=== PATIENT | female | born 1995 ===

== ENCOUNTER 2017-05-23 09:29 | Emergency (ER) | payer BC, MEDICAID ==
[2017-05-23 09:32] VITALS: BMI 21.7
[2017-05-23 10:34] LABS: RBC URINE 10 /hpf (0-3); URINE BACTERIA RARE (<OCC); URINE BILIRUBIN NEGATIVE (NEGATIVE); URINE BLOOD SMALL (NEGATIVE); URINE COLOR AMBER (YELLOW); URINE GLUCOSE (UA) NEG (Normal); URINE KETONE NEGATIVE (NEGATIVE); URINE LEUKOCYTE ESTERASE LARGE Leu/uL (Negative); URINE PROTEIN 30 mg/dL (NEGATIVE); WBC URINE 51 /hpf (0-5)
--- NOTE | 2017-05-23 10:42 | ED PDOC ---
HPI: Abdomen Time Seen by Provider: 05/23/17 09:51 Chief Complaint (Nursing): Abdominal Pain Chief Complaint (Provider): abdominal pain History Per: Patient History/Exam Limitations: no limitations Onset/Duration Of Symptoms: Days (x 2), Intermittent Episodes Additional Complaint(s): Vanessa Wright is a 22 year old female, with no previoua medical history, who presents to the ED with complaints of intermittent episodes of abdominal pain ongoing for 2 days. Patient denies any fever, chills, nausea, vomiting, diarrhea , constipation or urinary symptoms. PMD: none provided Abnormal Vaginal Bleeding: No Past Medical History Vital Signs: Last Vital Signs Temp 98.4 F 05/23/17 14:35 Pulse 83 05/23/17 14:35 Resp 16 05/23/17 14:35 BP 104/62 05/23/17 14:35 Pulse Ox 96 05/23/17 14:35 - Family History Family History: States: Unknown Family Hx - Home Medications Home Medications: Ambulatory Orders Medication Instructions Recorded Nitrofurantoin Macrocrystals 100 mg PO BID #14 cap 05/23/17 [Macrobid] Phenazopyridine [Pyridium] 200 mg PO TID PRN #6 tab 05/23/17 - Allergies Allergies/Adverse Reactions: Allergies Allergy/AdvReac Type Severity Reaction Status Date / Time No Known Allergies Allergy Verified 05/23/17 09:39 Review of Systems ROS Statement: Except As Marked, All Systems Reviewed And Found Negative Constitutional: Negative for: Fever, Chills Gastrointestinal: Positive for: Abdominal Pain. Negative for: Nausea, Vomiting , Diarrhea Physical Exam - Reviewed Nursing Documentation Reviewed: Yes Vital Signs Reviewed: Yes - Physical Exam Appears: Positive for: Well, Non-toxic, No Acute Distress Head Exam: Positive for: ATRAUMATIC, NORMAL INSPECTION, NORMOCEPHALIC Skin: Positive for: Normal Color, Warm, DRY Eye Exam: Positive for: EOMI, Normal appearance, PERRL ENT: Positive for: Normal ENT Inspection Neck: Positive for: Normal, Painless ROM Cardiovascular/Chest: Positive for: Regular Rate, Rhythm Respiratory: Positive for: CNT, Normal Breath Sounds Gastrointestinal/Abdominal: Positive for: Bowel Sounds, Soft. Negative for: Guarding, Rebound Back: Positive for: Normal Inspection Extremity: Positive for: Normal ROM Neurologic/Psych: Positive for: Alert, Oriented - Laboratory Results Result Diagrams: 05/23/17 11:04 05/23/17 11:04 - ECG O2 Sat by Pulse Oximetry: 99 (RA) Pulse Ox Interpretation: Normal Medical Decision Making Medical Decision Making: Initial Impression: abdominal pain Initial Plan: * urinalysis * urine * lipase * US abdomen Accession No. : [id number] Patient Name / ID : MARCELO GALARZA / [id number] Exam Date : 05/23/2017 10:56:34 ( Approved ) Study Comment : Sex / Age : F / 22Y Creator : Miguel Alvarado MD Dictator : Miguel Alvarado MD Patrol Lady : Tick Eradicator : Miguel Alvarado MD Approver2 : Report Date : 05/23/2017 12:06:40 My Comment : HISTORY: RUQ pain COMPARISON: None. TECHNIQUE: Sonographic evaluation of the right upper quadrant of the abdomen. FINDINGS: LIVER: Measures 15.0 cm in length. Normal echogenicity of the liver parenchyma. No mass. No intrahepatic bile duct dilatation. Normal hepatopetal portal venous flow demonstrated. GALLBLADDER: Unremarkable. No gallstones. COMMON BILE DUCT: Measures 5 mm. No stones. No dilatation. PANCREAS: Unremarkable as visualized. No mass. No ductal dilatation. RIGHT KIDNEY: Measures 11.9 cm in length. Normal echogenicity. No calculus, mass, or hydronephrosis. AORTA: No aneurysmal dilatation. IVC: Unremarkable. OTHER FINDINGS: None . IMPRESSION: No evidence of cholelithiasis or cholecystitis. Unremarkable ultrasound examination. Scribe Attestation: Documented by Deborah Rick, acting as a scribe for Deborah Bernard MD. Provider Scribe Attestation: All medical record entries made by the Scribe were at my direction and personally dictated by me. I have reviewed the chart and agree that the record accurately reflects my personal performance of the history, physical exam, medical decision making, and the department course for this patient. I have also personally directed, reviewed, and agree with the discharge instructions and disposition. Disposition - Clinical Impression Clinical Impression: UTI (urinary tract infection) - Disposition Referrals: [facility] [Outside] Disposition: Routine/Home Disposition Time: 13:21 Condition: STABLE Prescriptions: Nitrofurantoin Macrocrystals [Macrobid] 100 mg PO BID #14 cap Phenazopyridine [Pyridium] 200 mg PO TID PRN #6 tab PRN Reason: Bladder Spasm Instructions: Urinary Tract Infection in Women (ED) Forms: [employer] (Togolese)
[2017-05-23 11:11] LABS: BASO % 0.4 % (0.0-2.0); EOS # 0.1 K/uL (0.0-0.7); EOS % 1.4 % (0.0-4.0); HEMATOCRIT 34.8 % (34.0-47.0); LYMPH # 1.2 K/uL (1.0-4.3); LYMPH % 15.5 % (20.0-40.0); MEAN CELL VOLUME 88.5 fl (81.0-99.0); MEAN CORPUSCULAR HEMOGLOBIN 29.2 pg (27.0-31.0); MEAN PLATELET VOLUME 8.9 fl (7.2-11.7); MONO # 0.6 K/uL (0.0-0.8); MONO % 7.4 % (0.0-10.0); NEUT # 5.9 K/uL (1.8-7.0); NEUT % 75.3 % (50.0-75.0); RED CELL DISTRIBUTION WIDTH 13.9 % (11.5-14.5); WHITE BLOOD COUNT 7.9 K/uL (4.8-10.8)
[2017-05-23 11:22] LABS: ALB/GLOB RATIO 1.1 (1.0-2.1); ALKALINE PHOSPHATASE 74 U/L (38-126); ALT/SGPT 14 U/L (9-52); AST/SGOT 36 U/L (14-36); BILIRUBIN,TOTAL 0.8 mg/dl (0.2-1.3); BLOOD UREA NITROGEN 7 mg/dl (7-17); CALCIUM 8.7 mg/dL (8.4-10.2); CARBON DIOXIDE 24 mmol/L (22-30); CHLORIDE 103 mmol/L (98-107); GFR AFRICAN-AMERICAN > 60; GLUCOSE,RANDOM 60 mg/dL (65-105); LIPASE 27 U/L (23-300); SODIUM 140 mmol/l (132-148)
[2017-05-23 11:27] LABS: POTASSIUM 4.5 MMOL/L (3.6-5.0)
--- NOTE | 2017-05-23 12:08 | US ---
HISTORY: RUQ pain COMPARISON: None. TECHNIQUE: Sonographic evaluation of the right upper quadrant of the abdomen. FINDINGS: LIVER: Measures 15.0 cm in length. Normal echogenicity of the liver parenchyma. No mass. No intrahepatic bile duct dilatation. Normal hepatopetal portal venous flow demonstrated. GALLBLADDER: Unremarkable. No gallstones. COMMON BILE DUCT: Measures 5 mm. No stones. No dilatation. PANCREAS: Unremarkable as visualized. No mass. No ductal dilatation. RIGHT KIDNEY: Measures 11.9 cm in length. Normal echogenicity. No calculus, mass, or hydronephrosis. AORTA: No aneurysmal dilatation. IVC: Unremarkable. OTHER FINDINGS: None . IMPRESSION: No evidence of cholelithiasis or cholecystitis. Unremarkable ultrasound examination.
[2017-05-23] MEDS ORDERED: cefTRIAXone IV 1 gm in Dextros 50 ML IVPB STA (12:46)
[2017-05-23] MEDS ORDERED: cefTRIAXone IV 1 gm in Dextros 50 ML IVPB ONE (13:26)
[2017-05-23 14:36] VITALS: BP 104/62; PULSE 83; RESP 16; TEMP 98.4
[2017-06-04 14:32] VITALS: O2SAT 99
== END 2017-05-23 14:42 | disposition home or self-care (01) ==
LOC: H.ER 09:29
DX: N39.0 Urinary tract infection, site not specified (principal)
CPT/HCPCS: 76705; 80053; 81003; 81025; 83690; 85025; 96365; 99283; J0696

== ENCOUNTER 2017-10-30 18:26 | Emergency (ER) | payer OTHER ==
[2017-10-30 18:26] VITALS: BMI 21.7
[2017-10-30 18:42] VITALS: BP 104/69; PULSE 100; RESP 16; TEMP 98.1; O2SAT 100
--- NOTE | 2017-10-30 20:50 | ED PDOC ---
HPI: Psych/Substance Abuse Time Seen by Provider: 10/30/17 20:27 Chief Complaint (Nursing): Psychiatric Evaluation Chief Complaint (Provider): Psychiatric Evaluation History Per: Patient History/Exam Limitations: no limitations Onset/Duration Of Symptoms: Days (x 1) Current Symptoms Are (Timing): Still Present Additional Complaint(s): Vanessa is a 22 y/o female who presents to the ED after feeling overwhelmed the past few days. 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 She says that she would never do it but still has the desire, and denies any specific plan. Patient has no other complaints at this time. PMD: None Past Medical History Reviewed: Historical Data, Nursing Documentation, Vital Signs Vital Signs: Last Vital Signs Temp 98.1 F 10/30/17 18:39 Pulse 100 H 10/30/17 18:39 Resp 16 10/30/17 18:39 BP 104/69 10/30/17 18:39 Pulse Ox 100 10/30/17 18:39 - Family History Family History: States: Unknown Family Hx - Home Medications Home Medications: Ambulatory Orders Medication Instructions Recorded Nitrofurantoin Macrocrystals 100 mg PO BID #14 cap 05/23/17 [Macrobid] Phenazopyridine [Pyridium] 200 mg PO TID PRN #6 tab 05/23/17 - Allergies Allergies/Adverse Reactions: Allergies Allergy/AdvReac Type Severity Reaction Status Date / Time No Known Allergies Allergy Verified 10/30/17 18:39 Review of Systems ROS Statement: Except As Marked, All Systems Reviewed And Found Negative Psych: Positive for: Suicidal ideation Physical Exam - Reviewed Nursing Documentation Reviewed: Yes Vital Signs Reviewed: Yes - Physical Exam Appears: Positive for: Well, Non-toxic, No Acute Distress Eye Exam: Positive for: EOMI, Normal appearance, PERRL ENT: Positive for: Normal ENT Inspection Cardiovascular/Chest: Positive for: Regular Rate, Rhythm Respiratory: Positive for: CNT, Normal Breath Sounds - ECG O2 Sat by Pulse Oximetry: 100 (RA) Pulse Ox Interpretation: Normal Medical Decision Making Medical Decision Making: Time: 20:27 Initial Impression: Suicidal Ideation Initial Plan: Scribe Attestation: Documented by Chato Plasencia acting as a scribe for Saad Fonseca PA-C MD Scribe Attestation: All medical record entries made by the Scribe were at my direction and personally dictated by me. I have reviewed the chart and agree that the record accurately reflects my personal performance of the history, physical exam, medical decision making, and the department course for this patient. I have also personally directed, reviewed, and agree with the discharge instructions and disposition. Disposition - Clinical Impression Clinical Impression: Depression - Patient ED Disposition Is Patient to be Admitted: No Discussed With Dr.: Markie Will (outpatient) Doctor Will See Patient In The: Office Counseled Patient/Family Regarding: Diagnosis, Need For Followup - Disposition Disposition: Routine/Home Disposition Time: 21:00 Condition: GOOD Forms: [employer] (Luxembourgish)
[2017-10-30 21:31] LABS: SQUAMOUS EPITHIAL 9 /hpf (0-5); URINE BACTERIA FEW (<OCC); URINE BILIRUBIN NEGATIVE (NEGATIVE); URINE BLOOD SMALL (NEGATIVE); URINE CLARITY CLOUDY (Clear); URINE COLOR YELLOW (YELLOW); URINE GLUCOSE (UA) NEG (Normal); URINE LEUKOCYTE ESTERASE LARGE Leu/uL (Negative); URINE PROTEIN NEGATIVE (NEGATIVE); URINE UROBILINOGEN 0.2-1.0 mg/dL (0.2-1.0)
== END 2017-10-30 22:22 | disposition home or self-care (01) ==
LOC: H.ER 18:26
DX: R45.851 Suicidal ideations (principal); F32.9 Major depressive disorder, single episode, unspecified

== ENCOUNTER 2018-04-13 11:41 | Emergency (ER) | payer OTHER ==
[2018-04-13 11:51] VITALS: O2SAT 98; BMI 22.3
[2018-04-13 12:18] VITALS: RESP 18
--- NOTE | 2018-04-13 12:24 | ED PDOC ---
History of Present Illness History of Present Illness: Vanessa Nix is a 23 year old female with no past medical history who is presenting to the ED for evaluation of productive cough, body pain, and throat pain onset 2 weeks ago. Patient reports a fever of 101.7 three days ago and states she had an episode of post-tussive vomiting at onset of symptoms. She states that she has been medicating with Dayquil but has not taken any medications today. Patient denies any rash, ear pain, diarrhea, or recent travel. Of note, patient states that her son was sick recently. Otherwise: (-) chills, (-) chest pain, (-) dyspnea, (-) hemoptysis, (-) upper back pain, (-) travel, (-) recent prolonged immobility. LNMP: March 15, 2018 PMD: Cindy Juárez I HPI: Influenza Time Seen by Provider: 04/13/18 12:20 Chief Complaint: Cough, Cold, Congestion Chief Complaint (Provider): Cough, Cold, Congestion History Per: Patient Exam Limitations: no limitations Have you had recent travel within the past 21 days to any of: No Onset/Duration Of Symptoms: Days (x14) Symptoms include: fever, bodyaches, sore throat, cough. denies: diarrhea, chest pain, difficulty breathing Past Medical History Reviewed: Historical Data, Nursing Documentation, Vital Signs Vital Signs: Last Vital Signs Temp 98.6 F 04/13/18 12:10 Pulse 104 H 04/13/18 12:10 Resp 18 04/13/18 12:10 BP 98/62 L 04/13/18 12:10 Pulse Ox 98 04/13/18 12:10 - Medical History PMH: No Chronic Diseases - Surgical History Surgical History: No Surg Hx - Family History Family History: States: Unknown Family Hx - Social History Current smoker - smoking cessation education provided: Yes (1/2 pack a day) Alcohol: None Drugs: Denies - Home Medications Home Medications: Ambulatory Orders Medication Instructions Recorded Nitrofurantoin Macrocrystals 100 mg PO BID #14 cap 05/23/17 [Macrobid] Phenazopyridine [Pyridium] 200 mg PO TID PRN #6 tab 05/23/17 Albuterol Sulfate [Ventolin Hfa] 1 puff IH 14 PRN #1 unit 04/13/18 Azithromycin [Z-Dusty] 250 mg PO DAILY #6 tab 04/13/18 Fluticasone Propionate [Flonase] 1 actuation NS BID #1 bottle 04/13/18 Naproxen 500 mg PO BID PRN #20 tab 04/13/18 Promethazine DM [Phenergan DM 5 ml PO Q6 PRN #150 ml 04/13/18 Syrup] - Allergies Allergies/Adverse Reactions: Allergies Allergy/AdvReac Type Severity Reaction Status Date / Time No Known Allergies Allergy Verified 10/30/17 18:39 Review of Systems ROS Statement: Except As Marked, All Systems Reviewed And Found Negative Constitutional: Positive for: Fever. Negative for: Chills ENT: Positive for: Nose Discharge. Negative for: Ear Pain Cardiovascular: Negative for: Chest Pain Respiratory: Positive for: Cough, Sputum. Negative for: Shortness of Breath Gastrointestinal: Negative for: Diarrhea Musculoskeletal: Negative for: Back Pain Physical Exam - Reviewed Nursing Documentation Reviewed: Yes Vital Signs Reviewed: Yes - Physical Exam Comments: GENERAL APPEARANCE: Patient is awake, alert, oriented x 3, in no acute distress. She is resting comfortably, interacting with family. (+) cough SKIN: Warm, dry; (-) cyanosis. EYES: (-) conjunctival pallor. ENMT: Mucous membranes moist. Airway patent: (-) stridor. Pharynx: clear. uvula midline (+) mild erythema, (-) exudate, (+) 2+ tonsilar hypertrophy. TMs: (-) bulging, (-) erythema. (-) sinus tenderness. Nares: (+) clear rhinorrhea. NECK: Supple, FROM (-) tenderness, (-) stiffness, (-) lymphadenopathy. CHEST AND RESPIRATORY: (+) scattered rhonchi, (-) rales, (-) wheezes, (-) pleural rub; breath sounds equal bilaterally. Respirations nonlabored, speaking in full sentences. HEART AND CARDIOVASCULAR: (-) irregularity ABDOMEN AND GI: Soft; (-) tenderness (-) distention (-) guarding. EXTREMITIES: (-) deformity; (-) edema. NEURO AND PSYCH: Mental status as above. Cranial nerves grossly intact; strength symmetric. Gait: steady. Speech: clear. (-) facial asymmetry (-) focal deficit. Medical Decision Making Medical Decision Making: Time: 12:24 Impression: cough, congestion, sore throat, probable bronchitis Plan: --ED Urine --Chest x-ray --Albuterol 2.5 ml INH --Duoneb 3 ml INH --Naproxen 500 mg PO --Phenergan/Codeine 5 ml PO (Not driving) --Throat Culture --Rapid Strep Upreg: negative 1315 CXR: Date of service: 04/13/2018 HISTORY: cough x2 weeks COMPARISON: No prior. TECHNIQUE: Chest PA and lateral FINDINGS: LUNGS: No active pulmonary disease. PLEURA: No significant pleural effusion identified. No pneumothorax apparent. CARDIOVASCULAR: Normal. OSSEOUS STRUCTURES: No significant abnormalities. VISUALIZED UPPER ABDOMEN: Normal. OTHER FINDINGS: None. IMPRESSION: No active disease. Azithromycin PO ordered. 1330 Rapid Strep: Negative Repeat HR: 99 On re-evaluation, patient reports improvement of symptoms. On exam, patient remains AAOx3, in no acute distress. Lungs clear to auscultation, cardiac RRR, repeat neuro exam shows no focal findings. Vitals stable. Lab/Diagnostic results d/w the patient in great detail. Diagnosis of acute bronchitis, pharyngitis d/w the patient. Based on history, exam and diagnostic results, plan will be for outpatient follow up. Patient instructed to follow-up with pmd / referral provided / the clinic in 1- 2 days without fail. Advised to take medication as prescribed. Return to the emergency room at any time for any new or worsening symptoms. Patient states she fully agrees with and understands discharge instructions. States that she agrees with the plan and disposition. Verbalized and repeated discharge instructions and plan. I have given the patient opportunity to ask any additional questions. Scribe Attestation: Documented by Cary Sargent, acting as a scribe for Nilsa Taylor PA-C. Provider Scribe Attestation: All medical record entries made by the Scribe were at my direction and personally dictated by me. I have reviewed the chart and agree that the record accurately reflects my personal performance of the history, physical exam, medical decision making, and the department course for this patient. I have also personally directed, reviewed, and agree with the discharge instructions and disposition. - ECG O2 Sat by Pulse Oximetry: 98 (RA) Pulse Ox Interpretation: Normal Disposition - Clinical Impression Clinical Impression: Cough, Bronchitis, Nasal congestion, Pharyngitis - Patient ED Disposition Is Patient to be Admitted: No Counseled Patient/Family Regarding: Studies Performed, Diagnosis, Need For Followup, Rx Given - Disposition Referrals: Cindy Juárez MD [Medical Doctor] - Disposition: Routine/Home Disposition Time: 13:45 Condition: STABLE Additional Instructions: The emergency medical care you received today was directed at your acute symptoms. If you were prescribed any medication, please fill it and take as directed. It may take several days for your symptoms to resolve. Return to the Emergency Department if your symptoms worsen, do not improve, or if you have any other problems. Please contact your doctor in 2 days for re-evaluation and follow up / or call one of the physicians/clinics you have been referred to that are listed on the Patient Visit Information form that is included in your discharge packet. Bring any paperwork you were given at discharge with you along with any medications you are taking to your follow up visit. Our treatment cannot replace ongoing medical care by a primary care provider (PCP) outside of the emergency department. Prescriptions: Albuterol Sulfate [Ventolin Hfa] 1 puff IH 14 PRN #1 unit PRN Reason: Shortness Of Breath Azithromycin [Z-Dusty] 250 mg PO DAILY #6 tab Fluticasone Propionate [Flonase] 1 actuation NS BID #1 bottle Naproxen 500 mg PO BID PRN #20 tab PRN Reason: Pain, Moderate (4-7) Promethazine DM [Phenergan DM Syrup] 5 ml PO Q6 PRN #150 ml PRN Reason: Cough Instructions: Cough in Adults, Sore Throat in Adults, Acute Bronchitis, Bacterial Upper Respiratory Infection, Adult Forms: [employer] (Italian) Print Language: VINCENTIAN - POA Present On Arrival: None Results - Lab Results Lab Results: 04/13/18 12:31 Grp A Beta Strep Ag Negative
[2018-04-13] MEDS ORDERED: Promethazine/Cod 6.25mg-10mg/5ml Syr UD ONE (12:34)
[2018-04-13] MEDS ORDERED: Naproxen 500 MG TAB PO ONE (12:34)
[2018-04-13] MEDS ORDERED: Albuterol 0.083% Inhal Sol (2.5 mg/3 mL) UD ONE (12:34)
[2018-04-13] MEDS ORDERED: Albuterol-Ipratrop 3 mg / 0.5 (3 ml) UD ONE (12:35)
[2018-04-13] MEDS: Albuterol 0.083% Inhal Sol (2.5 mg/3 mL) UD INH STA (12:45)
[2018-04-13] MEDS: Naproxen 500 MG TAB PO STA (12:45)
[2018-04-13] MEDS: Promethazine/Cod 6.25mg-10mg/5ml Syr UD PO STA (12:46)
[2018-04-13] MEDS: Albuterol-Ipratrop 3 mg / 0.5 (3 ml) UD INH STA (12:46)
[2018-04-13 13:53] VITALS: BP 100/52; PULSE 99; TEMP 98.5
--- NOTE | 2018-04-13 14:19 | RAD ---
Date of service: 04/13/2018 HISTORY: cough x2 weeks COMPARISON: No prior. TECHNIQUE: Chest PA and lateral FINDINGS: LUNGS: No active pulmonary disease. PLEURA: No significant pleural effusion identified. No pneumothorax apparent. CARDIOVASCULAR: Normal. OSSEOUS STRUCTURES: No significant abnormalities. VISUALIZED UPPER ABDOMEN: Normal. OTHER FINDINGS: None. IMPRESSION: No active disease.
== END 2018-04-13 13:59 | disposition home or self-care (01) ==
LOC: H.ER 11:41
DX: R05 Cough (principal); J20.9 Acute bronchitis, unspecified; J02.9 Acute pharyngitis, unspecified; R09.81 Nasal congestion